=== PATIENT | male | born 1980 | race Caucasian/White ===

== ENCOUNTER 2019-10-06 22:05 | Emergency (ER) | payer BC, MEDICAID, MEDICARE ==
[~2019-10-06] VITALS: Ht 162.6 cm; Wt 114.0 kg
[2019-10-06 23:04] VITALS: BP 126/88
== END 2019-10-07 09:01 | disposition left against medical advice (07) ==
LOC: ER 22:05
DX: Z53.21 Procedure and treatment not carried out due to patient leaving prior to being seen by health care provider (principal)